=== PATIENT | male | born 1945 ===

== ENCOUNTER → 2019-04-28 | Day surgery (SDC) | payer MEDICARE, OTHER ==
[~2019-04-28] VITALS: Ht 172.7 cm; Wt 75.7 kg
[~2019-04-28] MED LIST: CITALOPRAM10 MG PO; NEURONTIN100 MG PO
[2019-04-28 08:10] VITALS: BP 88/55
[2019-04-28 08:25] VITALS: BP 102/51
[2019-04-28 08:40] VITALS: BP 109/63
== END | disposition home or self-care (01) ==
LOC: SDC 04-23 13:15
DX: Z12.11 Encounter for screening for malignant neoplasm of colon (principal); D12.0 Benign neoplasm of cecum; K57.30 Diverticulosis of large intestine without perforation or abscess without bleeding; F41.9 Anxiety disorder, unspecified; F32.9 Major depressive disorder, single episode, unspecified; E66.9 Obesity, unspecified; Z68.25 Body mass index [BMI] 25.0-25.9, adult; Z79.899 Other long term (current) drug therapy; Z98.890 Other specified postprocedural states